=== PATIENT | male | born 1960 | race Caucasian/White ===

== ENCOUNTER 2022-06-23 06:58 | Day surgery (SDC) | payer BC ==
[2022-06-22 11:46] LABS: Potassium 4.2 mmol/L (3.5-5.1)
[2022-06-23] MEDS: Ringers Lactate 1,000 ML IV ONE ×2 (07:15→07:50)
[2022-06-23] MEDS ORDERED: MIDAZOLAM HCL 2 MG/2 ML INJ ONE (07:58)
[2022-06-23] MEDS ORDERED: propofoL 200 MG/20 ML VIAL IV ONE (07:58)
[2022-06-23] MEDS ORDERED: FENTANYL CITR 100 MCG/2 ML ONE (07:58)
[2022-06-23] MEDS ORDERED: LIDOCAINE 1% MPF 5 ML VIAL ONE (07:58)
--- NOTE | 2022-06-23 08:33 | ENDO RPT ---
[address], [address] COLONOSCOPY PROCEDURE REPORT EXAM DATE: 06/23/2022 PATIENT NAME: Gilbert Rowell MR #: [id number] BIRTHDATE: 1960 ATTENDING: Ramon Fay DR STATUS: outpatient WIC SITE COORDINATOR: Karthik Maciel and Candida Venegas RN INDICATIONS: The patient is a 61 yr old Male here for a colonoscopy due to colon cancer screening, bright red bleeding, and treatment of bleeding PROCEDURE PERFORMED: Colonoscopy with biopsy - cold polypectomy and Colonoscopy for control of bleeding Hemorrhoid - Hemorrhoidal Banding performed MEDICATIONS: Per Anesthesia. ESTIMATED BLOOD LOSS: None CONSENT: The patient understands the risks and benefits of the procedure and understands that these risks include, but are not limited to: sedation, allergic reaction, infection, perforation and/or bleeding. Alternative means of evaluation and treatment include, among others: physical exam, x-rays, and/or surgical intervention. The patient elects to proceed with this endoscopic procedure. DESCRIPTION OF PROCEDURE: During intra-op preparation period all mechanical medical equipment was checked for proper function. Hand hygiene and appropriate measures for infection prevention was taken. Procedure, possible complications, alternatives including, but not limited to possibility of bleeding, perforation, tear, infection, sepsis, need for surgery, need for blood transfusion, were explained to the patient. After the risks, benefits and alternatives of the procedure were thoroughly explained, Informed consent was verified, confirmed and timeout was successfully executed by the treatment team. The patient was placed in the left lateral position. A digital rectal exam was performed and revealed internal hemorrhoids and A digital rectal exam was performed and revealed external hemorrhoids. After appropriate level of anesthesia, the scope was passed. The EC-[id number] ([id number]) and [id number] ([id number]) endoscope was introduced through the anus and advanced to the cecum, which was identified by both the appendix and ileocecal valve. The quality of the prep was fair. The instrument was then slowly withdrawn as the colon was fully examined. Scope withdrawal time was 12 minutes. COLON FINDINGS: A smooth semi-pedunculated polyp ranging between 3-5mm in size was found in the sigmoid colon. A polypectomy was performed using snare cautery. The resection was complete, the polyp tissue was completely retrieved and sent to histology. Moderate sized internal and external hemorrhoids were found. Single moderate to large hemorrhoid was banded. Mild diverticulosis was noted in the descending colon. No bleeding was noted from the diverticulosis. Retroflexed views revealed no abnormalities. The scope was then completely withdrawn from the patient and the procedure terminated. ADVERSE EVENTS: There were no complications. IMPRESSIONS: 1. Semi-pedunculated polyp ranging between 3-5mm in size was found in the sigmoid colon; polypectomy was performed using snare cautery 2. Moderate sized internal and external hemorrhoids 3. Mild diverticulosis was noted in the descending colon RECOMMENDATIONS: 1. avoid NSAIDS for 2 weeks 2. await biopsy results 3. follow-up: office 2 week(s) 4. Monitor for any evidence of rectal bleeding. 5. hemorrhoidal hygiene 6. yearly hemoquant 7. low fiber / diverticular diet RECALL: for Colonoscopy, pending biopsy results. Ramon Fay DR eSigned: Ramon Fay DR 06/23/2022 8:32 AM cc: CPT CODES: ICD9 CODES: PATIENT NAME: Gilbert Rowell MR#: [id number]
[2022-06-23 10:06] VITALS: TEMP 97.2; O2SAT 97
[2022-06-23 14:14] VITALS: BP 113/66
--- NOTE | 2022-06-23 18:11 | EKG ---
Test Date: 2022-06-22 Test Time: 11:00:56 Operations Administrative Assistant: EMMIE MEASUREMENT RESULTS: Intervals: Rate: 71 RI: 162 QRSD: 80 QT: 390 QTc: 423 [place]: P: 60 RI: 162 QRS: 39 T: 57 INTERPRETIVE STATEMENTS: Normal sinus rhythm Normal ECG No previous ECG available for comparison Electronically Signed On 06-23-22 18:10:30 DESIGNATED BROKER by Lazaro Horton
== END 2022-06-23 09:07 | disposition home or self-care (01) ==
LOC: OR 06:58
PROVIDERS: ATTEND Surgery
PROC: 0DBN8ZX Excision of Sigmoid Colon, Via Natural or Artificial Opening Endoscopic, Diagnostic (ICD-10-PCS; principal; 2022-06-23 08:00)
DX: K62.5 Hemorrhage of anus and rectum (principal); K64.4 Residual hemorrhoidal skin tags; K64.8 Other hemorrhoids; K57.30 Diverticulosis of large intestine without perforation or abscess without bleeding; D12.5 Benign neoplasm of sigmoid colon
CPT/HCPCS: 93005; 80048; 36415; 88305; 45385; J2704; J2001; J2250; J3010; J7120